=== PATIENT | female | born 1990 | race Caucasian/White ===

== ENCOUNTER 2017-11-01 14:30 | Outpatient (CLI) | payer SELFPAY ==
[2017-11-01 15:22] VITALS: BP 112/63
[2017-11-01 16:27] LABS: Mucus,Urine 1+ /HPF
[2017-11-01 16:29] LABS: Bilirubin,Urine Negative (Negative); Color,Urine Yellow (Yellow)
[2017-11-01 16:30] LABS: Blood,Urine Negative (Negative); Protein,Urine <30 mg dL mg/dL (Negative); Urobilinogen,Urine < 2.0 mg/dL (<2.0)
== END 2017-11-01 16:49 | disposition home or self-care (01) ==
LOC: TRG 14:30
PROVIDERS: ATTEND Obstetrics & Gynecology
DX: O47.03 False labor before 37 completed weeks of gestation, third trimester (principal); Z3A.37 37 weeks gestation of pregnancy
CPT/HCPCS: 59025; 81001

== ENCOUNTER 2020-05-13 09:36 | Emergency (ER) | payer SELFPAY ==
[2020-05-13 10:07] VITALS: BP 114/69
[2020-05-13 12:20] LABS: Bacteria,Urine 3+ /HPF (Negative); Bilirubin,Urine NEG (Negative); Blood,Urine LG (Negative); Color,Urine Yellow (Yellow); Mucus,Urine FEW /HPF; Urobilinogen,Urine < 2.0 mg/dL (<2.0)
--- NOTE | 2020-05-13 13:11 | Ultrasound Report ---
ULTRASOUND OBSTETRIC REASON FOR EXAM: vaginal bleeding with pelvic pain TECHNIQUE: Transabdominal and transvaginal ultrasound was performed to evaluate a first trimester pre gnancy. COMPARISON: None available. FINDINGS: FINDINGS: The pole, yolk sac, and gestational sac are normal in appearance. [place]-rump length: 36.6 mm. This corresponds with a gestational age of 10 weeks 4 days. heart rate: 179 bpm Perigestational hemorrhage: There is perigestational hemorrhage involving less than half the circumfe rence of the gestational sac. This measures 3.3 x 1.6 cm. MATERNAL FINDINGS: The uterus measures 13.4 x 8.0 x 8.2 cm. The right ovary demonstrates a normal sonographic appearance. The left ovary demonstrates a normal sonographic appearance. Cul-de-sac: There is no free fluid. IMPRESSION: Viable intrauterine . Gestational age is 10 weeks 4 days by ultrasound. Recommend clinical s creening and ultrasound follow-up in the second trimester to screen for anomalies. There is a small perigestational hemorrhage which may account for vaginal bleeding. Signer Name: Juan David Tee MD Signed: 05/13/2020 1:06 PM Workstation Name: [place] [id number]
[2020-05-13 13:51] LABS: Hemoglobin 12.5 gm/dl (10.1-14.3); Mean Corpuscular HGB Conc 34 % (30-34); Mean Corpuscular Volume 82 fl (79-97); Platelet Count 257 K/mm3 (140-440); Red Blood Count 4.54 M/mm3 (3.65-5.03); Red Cell Distribution Width 15.2 % (13.2-15.2)
--- NOTE | 2020-05-13 14:48 | Emergency Department Report ---
ED HPI - General Chief complaint: Abdominal Pain Stated complaint: 3 MONTHS /BLEEDING/CRAMPING Time Seen by Provider: 05/13/20 10:20 Source: patient Mode of arrival: Ambulatory Limitations: No Limitations - History of Present Illness Initial comments: This is a 29-year-old female nontoxic, well nourished in appearance, no acute signs of distress presents to the ED with c/o of vaginal bleeding and pelvic pain x several days. Patient stated stated has spotting. Denies any heavy vaginal bleeding or clots. Patient denies any abdominal pain. Describes pelvic pain as cramping sensation. Stated does see an GUEST SERVICE AGENT. Patient denies any vaginal discharge or foul odor. Patient denies any nausea, vomiting, chest pain, shortness of breathe, fever, chills, headache, stiff neck, numbness, tingling. Patient denies any urinary symptoms. Patient denies any allergies or PMH. MD Complaint: vaginal bleeding -: days(s) Location: pelvis Radiation: none Severity: mild Severity scale (0 -10): 3 Quality: cramping Consistency: intermittent Improves with: none Worsens with: none Associated symptoms: vaginal bleeding. denies: nausea/vomiting, vaginal discharge, abdominal pain, dysuria, headache, vision changes, malaise, dysparuenia, rash, seizure, shortness of breath, syncope, weakness Vaginal bleeding: light :: Yes Pre- care: followed by OB - Related Data Previous Rx's Medication Instructions Recorded Last Taken Type Nitrofurantoin Sawyer/M-Cryst 100 mg PO Q12HR #14 capsule 05/13/20 Unknown Rx [Macrobid CAP] Allergies Allergy/AdvReac Type Severity Reaction Status Date / Time No Known Allergies Allergy Verified 05/13/20 10:02 ED Review of Systems ROS: Stated complaint: 3 MONTHS /BLEEDING/CRAMPING Other details as noted in HPI Comment: All other systems reviewed and negative Constitutional: denies: chills, fever Eyes: denies: eye pain, eye discharge, vision change ENT: denies: ear pain, throat pain Respiratory: denies: cough, shortness of breath, wheezing Cardiovascular: denies: chest pain, palpitations Endocrine: no symptoms reported Gastrointestinal: denies: abdominal pain, nausea, diarrhea Genitourinary: abnormal menses. denies: urgency, dysuria, discharge Musculoskeletal: denies: back pain, joint swelling, arthralgia Skin: denies: rash, lesions Neurological: denies: headache, weakness, paresthesias Psychiatric: denies: anxiety, depression Hematological/Lymphatic: denies: easy bleeding, easy bruising ED Past Medical Hx - Past Medical History Hx Hypertension: No Hx Diabetes: No Hx Deep Vein Thrombosis: No Hx Renal Disease: No Hx Sickle Cell Disease: No Hx Seizures: No Hx Asthma: No Hx HIV: No - Social History Smoking Status: Never Smoker Substance Use Type: None - Medications Home Medications: Home Medications Medication Instructions Recorded Confirmed Last Taken Type Nitrofurantoin Sawyer/M-Cryst 100 mg PO Q12HR #14 capsule 05/13/20 Unknown Rx [Macrobid CAP] ED Physical Exam - General Limitations: No Limitations General appearance: alert, in no apparent distress - Head Head exam: Present: atraumatic, normocephalic - Eye Eye exam: Present: normal appearance - Neck Neck exam: Present: normal inspection, full ROM - Respiratory Respiratory exam: Absent: respiratory distress - Cardiovascular Cardiovascular Exam: Present: regular rate - GI/Abdominal GI/Abdominal exam: Present: soft, normal bowel sounds. Absent: distended, tenderness, guarding, rebound, rigid, diminished bowel sounds - Extremities Exam Extremities exam: Present: full ROM - Back Exam Back exam: Present: normal inspection, full ROM - Neurological Exam Neurological exam: Present: alert, oriented X3, normal gait - Psychiatric Psychiatric exam: Present: normal affect, normal mood - Skin Skin exam: Present: warm, dry, intact, normal color. Absent: rash ED Course Vital Signs 05/13/20 10:06 Temperature 98.6 F Pulse Rate 84 Respiratory 18 Rate Blood Pressure 114/69 O2 Sat by Pulse 96 Oximetry - Reevaluation(s) Reevaluation #1: 05/13/20 14:46 Patient is speaking in full sentences with no signs of distress noted. ED Medical Decision Making - Lab Data Result diagrams: 05/13/20 13:36 Lab Results 05/13/20 05/13/20 05/13/20 Range/Units 11:53 13:36 13:36 WBC 11.5 H (4.5-11.0) K/mm3 RBC 4.54 (3.65-5.03) M/mm3 Hgb 12.5 (10.1-14.3) gm/dl Hct 37.0 (30.3-42.9) % MCV 82 (79-97) fl MCH 28 (28-32) pg MCHC 34 (30-34) % RDW 15.2 (13.2-15.2) % Plt Count 257 (140-440) K/mm3 HCG, Quant [id number] H (0-4) mIU/mL Urine Color Yellow (Yellow) Urine Turbidity Cloudy (Clear) Urine pH 5.0 (5.0-7.0) Ur Specific [place] 1.014 (1.003-1.030) Urine Protein 30 mg/dl (Negative) mg/dL Urine Glucose (UA) Neg (Negative) mg/dL Urine Ketones Neg (Negative) mg/dL Urine Blood Lg (Negative) Urine Nitrite Neg (Negative) Urine Bilirubin Neg (Negative) Urine Urobilinogen < 2.0 (<2.0) mg/dL Ur Leukocyte Esterase Lg (Negative) Urine WBC (Auto) 21.0 H (0.0-6.0) /HPF Urine RBC (Auto) 14.0 (0.0-6.0) /HPF U Epithel Cells (Auto) 26.0 H (0-13.0) /HPF Urine Bacteria (Auto) 3+ (Negative) /HPF Urine Mucus Few /HPF Blood Type 05/13/20 Range/Units 13:36 WBC (4.5-11.0) K/mm3 RBC (3.65-5.03) M/mm3 Hgb (10.1-14.3) gm/dl Hct (30.3-42.9) % MCV (79-97) fl MCH (28-32) pg MCHC (30-34) % RDW (13.2-15.2) % Plt Count (140-440) K/mm3 HCG, Quant (0-4) mIU/mL Urine Color (Yellow) Urine Turbidity (Clear) Urine pH (5.0-7.0) Ur Specific [place] (1.003-1.030) Urine Protein (Negative) mg/dL Urine Glucose (UA) (Negative) mg/dL Urine Ketones (Negative) mg/dL Urine Blood (Negative) Urine Nitrite (Negative) Urine Bilirubin (Negative) Urine Urobilinogen (<2.0) mg/dL Ur Leukocyte Esterase (Negative) Urine WBC (Auto) (0.0-6.0) /HPF Urine RBC (Auto) (0.0-6.0) /HPF U Epithel Cells (Auto) (0-13.0) /HPF Urine Bacteria (Auto) (Negative) /HPF Urine Mucus /HPF Blood Type O POSITIVE - Radiology Data Referring Physician: BEVERLY LR Patient Name: GENARO SCHWARZ Date of : 1990 Sex: Female Report Date: 2020-05-13 Report Status: Finalized [facility] [address] [place] [address] Ultrasound Report Signed Patient: GENARO SCHWARZ MR #: [id number] : 1990 Acct:[id number] Age/Sex: 29 / F ADM Date: 05/13/20 Loc: ED Attending Dr: Ordering Physician: BEVERLY LR NP Date of Service: 05/13/20 Procedure(s): US OB >= 14 weeks Fetus Accession Number(s): [id number] cc: BEVERLY LR NP ULTRASOUND OBSTETRIC REASON FOR EXAM: vaginal bleeding with pelvic pain TECHNIQUE: Transabdominal and transvaginal ultrasound was performed to evaluate a first trimester . COMPARISON: None available. FINDINGS: FINDINGS: The pole, yolk sac, and gestational sac are normal in appearance. [place]-rump length: 36.6 mm. This corresponds with a gestational age of 10 weeks 4 days. heart rate: 179 bpm Perigestational hemorrhage: There is perigestational hemorrhage involving less than half the circumference of the gestational sac. This measures 3.3 x 1.6 cm. MATERNAL FINDINGS: The uterus measures 13.4 x 8.0 x 8.2 cm. The right ovary demonstrates a normal sonographic appearance. The left ovary demonstrates a normal sonographic appearance. Cul-de-sac: There is no free fluid. IMPRESSION: Viable intrauterine . Gestational age is 10 weeks 4 days by ultrasound. Recommend clinical screening and ultrasound follow-up in the second trimester to screen for anomalies. There is a small perigestational hemorrhage which may account for vaginal bleeding. Signer Name: Cesar Tee MD Signed: 05/13/2020 1:06 PM Workstation Name: [id number] Transcribed By: JAIMEE Dictated By: CESAR TEE MD Electronically Authenticated By: CESAR TEE MD Signed Date/Time: 05/13/20 1306 DD/ 1244 TD/TT: - Medical Decision Making This is a 29-year-old female presents with threatened miscarriage and UTI. Patient is stable and was examined by me. Normal abdominal exam. US OB obtained and dictated by the radiologist. Ua obtained. Quantative serum test obtained. Patient notified of the US report with no questions noted by the patient. Patient was instructed f/u with GUEST SERVICE AGENT in 3-5 days. RH factor positive. Labs within normal limits. At time of discharge, the patient does not seem toxic or ill in appearance. No acute signs of distress noted. Patient agrees to discharge treatment plan of care. No further questions noted by the patient. Critical care attestation.: If time is entered above; I have spent that time in minutes in the direct care of this critically ill patient, excluding procedure time. ED Disposition Clinical Impression: Threatened miscarriage UTI (urinary tract infection) Qualifiers: Urinary tract infection type: acute cystitis Hematuria presence: with hematuria Qualified Code(s): N30.01 - Acute cystitis with hematuria Disposition: TO HOME OR SELFCARE Is pt being admited?: No Does the pt Need Aspirin: No Condition: Stable Instructions: Abdominal Pain (ED), Urinary Tract Infection, Adult, Threatened Miscarriage, [id number] Additional Instructions: Follow-up with a GUEST SERVICE AGENT doctor in 3-5 days or if symptoms worsen and continue return to emergency room as soon as possible. Prescriptions: Nitrofurantoin Sawyer/M-Cryst [Macrobid CAP] 100 mg PO Q12HR #14 capsule Referrals: PRIMARY CARE, [Primary Care Provider] - 3-5 Days [facility] [Provider Group] - 3-5 Days [facility] [Provider Group] - 3-5 Days Time of Disposition: 15:04
== END 2020-05-13 15:32 | disposition home or self-care (01) ==
LOC: ED 09:36
DX: O20.0 Threatened abortion (principal); O23.41 Unspecified infection of urinary tract in pregnancy, first trimester; Z3A.10 10 weeks gestation of pregnancy; Z79.899 Other long term (current) drug therapy
CPT/HCPCS: 36415; 76801; 76805; 81001; 84702; 85027; 86900; 86901; 87086

== ENCOUNTER 2020-11-21 04:49 | Outpatient (CLI) | payer SELFPAY ==
[2020-11-21 05:15] VITALS: BP 114/55
== END 2020-11-21 05:45 | disposition home or self-care (01) ==
LOC: TRG 04:49 → APU 05:05 → TRG 05:45
PROVIDERS: ATTEND Obstetrics & Gynecology
DX: Z34.93 Encounter for supervision of normal pregnancy, unspecified, third trimester (principal); Z3A.38 38 weeks gestation of pregnancy
CPT/HCPCS: 59025